=== PATIENT | female | born 1935 | race Caucasian/White ===

== ENCOUNTER 2021-11-17 15:20 | Emergency (ER) | payer MEDICARE, OTHER ==
[~2021-11-17] VITALS: Ht 154.9 cm; Wt 79.3 kg
[~2021-11-17 15:20] MED LIST: ATENOLOL50 MG PO; COUMADIN2 MG PO; COUMADIN3 MG PO; ESCITALOPRAM OX10 MG PO; FISH OIL 1,0001 EAC5 PO; HYDROCHLOROTHIA25 MG PO; LEXAPRO10 MG PO; LIPITOR10 MG PO; LISINOPRIL20 MG PO; MULTI-DAY PLUS1 EACH PO; MULTI-DAY VITA1 EACH PO; NORVASC2.5 MG PO; PAXIL CR12.5 MG PO; TOPROL XL100 MG PO; VISION PLUS LU1 EACH PO; WARFARIN SODIUM3 MG PO
--- NOTE | 2021-11-17 20:29 | EKG ---
[facility] [address] [facility] [place], [place] [address] Signed Atrial fibrillation with a competing junctional pacemaker Low voltage QRS Possible Inferior infarct , age undetermined Abnormal ECG No previous ECGs available Confirmed by KIMBERLY REILLY MD ([id number]) on 11/17/2021 8:29:17 PM Electronically Signed By: KIMBERLY REILLY MD 11/17/212028 PATIENT NAME: CRISTIAN HARRELL NICOLE Electrocardiogram DATE OF : 37 PHYSICIAN: KIMBERLY REILLY MD REPORT #: [id number] REPORT IS CONFIDENTIAL AND NOT TO BE RELEASED WITHOUT AUTHORIZATION
== END 2021-11-17 17:49 | disposition short-term general hospital (02) ==
LOC: ED 15:20
DX: I63.411 Cerebral infarction due to embolism of right middle cerebral artery (principal); R29.720 NIHSS score 20; I48.20 Chronic atrial fibrillation, unspecified; Z79.01 Long term (current) use of anticoagulants; Z79.899 Other long term (current) drug therapy; Z20.822 Contact with and (suspected) exposure to COVID-19
CPT/HCPCS: 36415; 70450; 70496; 70498; 71045; 80053; 84484; 85025; 85610; 85730; 87502; 93005; 93010; 99285-25; C9803; J3101; Q3014; Q9967; U0003

== ENCOUNTER 2022-02-19 16:13 | Emergency (ER) | payer MEDICARE, OTHER ==
[~2022-02-19] VITALS: Ht 154.9 cm; Wt 78.9 kg
[2022-02-19] MEDS ORDERED: ELIQUIS5 MG PO (18:03)
[2022-02-19] MEDS ORDERED: HYDROCODON-ACE1 EA10 PO (21:20)
== END 2022-02-19 22:31 | disposition home or self-care (01) ==
LOC: ED 16:13
DX: M54.50 Low back pain, unspecified (principal); F03.90 Unspecified dementia, unspecified severity, without behavioral disturbance, psychotic disturbance, mood disturbance, and anxiety; I48.91 Unspecified atrial fibrillation; I10 Essential (primary) hypertension; Z86.73 Personal history of transient ischemic attack (TIA), and cerebral infarction without residual deficits; Z79.899 Other long term (current) drug therapy; Z79.01 Long term (current) use of anticoagulants
CPT/HCPCS: 36415; 74177; 80053; 81001; 85025; 85610; 99284-25; A9270; Q9967